=== PATIENT | male | born 2000 | race Two or more races ===

== ENCOUNTER 2022-12-14 13:54 | Emergency (ER) | payer OTHER ==
[~2022-12-14] VITALS: Ht 165.1 cm; Wt 59.1 kg
[2022-12-14 14:00] VITALS: BP 151/91
[2022-12-14] MEDS ORDERED: LIDOCAINE 1% 20 ML VIAL SQ ONE (14:45)
[2022-12-14] MEDS ORDERED: LIDOCAINE 1% 10 ML VIAL SQ ONE (14:45)
[2022-12-14] MEDS ORDERED: PERTUSS(ACELL),DIPH,TET VAC/PF 0.5 ML SYRINGE IM. ONE (14:45)
[2022-12-14] MEDS ORDERED: CEPHALEXIN MONOHYDRATE 500 MG CAPSULE PO ONE (15:15)
[2022-12-14] MEDS ORDERED: CEPH-558 PO (15:43)
== END 2022-12-14 15:51 | disposition home or self-care (01) ==
LOC: EMS 14:00
DX: S81.011A Laceration without foreign body, right knee, initial encounter (principal); W26.8XXA Contact with other sharp object(s), not elsewhere classified, initial encounter; Y93.89 Activity, other specified; Y92.89 Other specified places as the place of occurrence of the external cause; Y99.8 Other external cause status
CPT/HCPCS: 99284; 12032; 73562; 90715; 90471; J3490; 12002; 99283